=== PATIENT | male | born 1990 | race African-American/Black ===

== ENCOUNTER 2023-08-16 23:29 | Emergency (ER) | payer OTHER ==
[2023-08-16 23:35] VITALS: BP 105/65; PULSE 75; RESP 18; TEMP 98; BMI 29.8
[2023-08-17] MEDS ORDERED: ACETAMINOPHEN 500 MG TABLET (FP) ONE (00:51)
[2023-08-17] MEDS ORDERED: METHOCARBAMOL 500 MG TABLET ONE (00:51)
[2023-08-17] MEDS ORDERED: LIDOCAINE 4% PATCH TP ONE (00:52)
[2023-08-17] MEDS: METHOCARBAMOL 750 MG TAB PO ONE (00:59)
[2023-08-17] MEDS: ACETAMINOPHEN 500 MG TABLET (FP) PO ONE (00:59)
[2023-08-17] MEDS: LIDOCAINE 5% TOPICAL PATCH TP ONE (00:59)
[2023-08-17] MEDS ORDERED: LIDOCAINE PATCH REMOVAL MC SCH (22:00)
== END 2023-08-17 01:51 | disposition home or self-care (01) ==
LOC: JER 23:29
DX: M54.2 Cervicalgia (principal); X50.0XXA Overexertion from strenuous movement or load, initial encounter
CPT/HCPCS: 99283-25

== ENCOUNTER 2023-09-23 21:02 | Emergency (ER) | payer OTHER ==
[2023-09-23 21:19] VITALS: BMI 28.3
[2023-09-23 21:48] LABS: PH,URINE 6.5 (5.0-8.0); URINE APPEARANCE CLEAR; URINE BILIRUBIN NEGATIVE (NEGATIVE); URINE COLOR YELLOW; URINE GLUCOSE (UA) NEGATIVE (NEGATIVE); URINE KETONE NEGATIVE (NEGATIVE); URINE LEUK ESTERASE 1+ (NEGATIVE); URINE NITRITE NEGATIVE (NEGATIVE); URINE PROTEIN NEGATIVE (NEGATIVE); URINE UROBILINOGEN 0.2 mg/dL (0.2-1.0)
[2023-09-23] MEDS: SODIUM CHLORIDE 0.9% 1000 ML INFUS.BAG IV ONE (22:25)
[2023-09-23] MEDS ORDERED: ACETAMINOPHEN INJECTION 100 ML IVPB ONE (22:28)
[2023-09-23 22:38] LABS: BASO % 0.2 % (0-2.0); EOS % 1.5 % (0-4.5); HEMATOCRIT 45.7 % (35.4-49); HEMOGLOBIN 15.9 GM/dL (11.7-16.9); LYMPH % 16.2 % (8-40); MCH 32.1 pg (25.7-33.7); MCHC 34.8 g/dl (32.0-35.9); MEAN CELL VOLUME 92.1 fl (80-96); MEAN PLT VOLUME 9.2 fl (7.5-11.1); MONO % 8.6 % (3.8-10.2); NEUT % 73.5 % (42.8-82.8); PLATELET COUNT 182 10^3/uL (134-434); RBC 4.95 M/mm3 (4.00-5.60); RDW 12.7 % (11.9-15.9); WHITE BLOOD COUNT 10.3 K/mm3 (4.0-10.0)
[2023-09-23 22:49] LABS: POTASSIUM 4.1 mmol/L (3.5-5.1)
[2023-09-23 22:50] LABS: BLOOD UREA NITROGEN 11.7 mg/dL (7-18)
[2023-09-23] MEDS: ACETAMINOPHEN 1000 MG/100 ML BAG IVPB ONE (22:50)
[2023-09-23 22:53] LABS: CREATININE 1.2 mg/dL (0.55-1.3)
[2023-09-24 00:30] VITALS: BP 112/71; PULSE 96; RESP 16; TEMP 99.5
[2023-09-24 01:20] LABS: EPI CELLS 14.7 /uL (0-25.1); URINE BACTERIA 8.5 /uL (0-1359); URINE RBC 2.9 /uL (0-23.9); URINE WBC 22.7 /uL (0-25.8)
== END 2023-09-24 00:31 | disposition home or self-care (01) ==
LOC: JER 21:02 → JERFT 21:02 → JER 09-24 00:31
DX: N30.00 Acute cystitis without hematuria (principal); R30.0 Dysuria; M79.10 Myalgia, unspecified site; R50.9 Fever, unspecified; R39.15 Urgency of urination
CPT/HCPCS: 36415; 80048; 81003; 85025; 87086; 87110; 87186; 87491; 87591; 87661; 99283-25; J0131

== ENCOUNTER 2023-09-25 14:18 | Emergency (ER) | payer OTHER ==
[2023-09-25 14:27] VITALS: BP 108/72; PULSE 71; RESP 18; TEMP 98.4; BMI 28.3
[2023-09-25] MEDS ORDERED: IBUPROFEN 400 MG TABLET (FP) PO ONE (15:20)
[2023-09-25] MEDS ORDERED: PHENAZOPYRIDINE HCL 100 MG TABLET (FP) ONE (15:21)
[2023-09-25] MEDS: IBUPROFEN 400 MG TABLET (FP) PO ONE (15:22)
[2023-09-25] MEDS: PHENAZOPYRIDINE HCL 100 MG TABLET (FP) PO ONE (15:22)
== END 2023-09-25 15:43 | disposition home or self-care (01) ==
LOC: JERFT 14:18
DX: N30.90 Cystitis, unspecified without hematuria (principal); M54.9 Dorsalgia, unspecified
CPT/HCPCS: 99283-25